=== PATIENT | male | born 1970 | race Caucasian/White ===

== ENCOUNTER 2017-06-14 05:06 | Emergency (ER) | payer MEDICAID, OTHER ==
[~2017-06-14] VITALS: Ht 177.8 cm; Wt 100.0 kg
[~2017-06-14 05:06] MED LIST: BACT800T5 PO; CEPH500C3 PO; CLIN1CAP6 PO; FOLI1 PO; TRAM50 PO; [UNRECOGNIZED DRUG - CODE] PO
[2017-06-14 05:09] VITALS: BP 136/96; PULSE 82; RESP 16; TEMP 97.9; O2SAT 99
--- NOTE | 2017-06-14 05:23 | PD ---
HPI Chief Complaint: Opioid Overdose Time Seen by Provider: 05:11 Travel History International Travel<30 days: No Contact w/Intl Traveler<30days: No Traveled to known affect area: No History of Present Illness HPI 46 yo M arrives by EMS due to unresponsiveness as witnessed by onlooker who witnessed patient on the ground in a house unknown to the patient. EMS gave 2 mg IM Narcan and the patient woke up shortly thereafter. In the ER he denies any drug use. He reports drinking alcohol last night. He denies suicidal thoughts or homicidal ideation. PFSH Past Medical History Autoimmune Disease: No Anxiety: Yes Depression: Yes Cancer: No Cardiovascular Problems: No Diminished Hearing: No Endocrine: No Genitourinary: Yes Hepatitis: Yes (C) Herniated Disk: Yes Immune Disorder: No Inguinal Hernia: Yes Kidney Stones: No Musculoskeletal: No Neurologic: No Psychiatric: No Reproductive: No Respiratory: No Integumentary: Yes (cellulitis 02/2015 lue) Renal Failure: Yes (only one kidney/acute kidney failure) Past Surgical History Endocrine Surgery: Yes (1 kidney) Other Surgery: Yes (CYST REMOVED FROM BACK) Social History Alcohol Use: Yes (4-6 PACK OF BEER EVERY 2-3 DAYS; LAST SEVERAL DAYS AGO) Tobacco Use: Yes (ONE PACK A DAY) Substance Use: Yes (OCC SMOKES CRACK COCAINE, HX IV DRUG USE, ETOH ABUSE) Allergies-Medications (Allergen,Severity, Reaction): Coded Allergies: penicillin G (Unverified Allergy, Mild, RASH/HIVES, 06/14/17) Reported Meds & Prescriptions Reported Meds & Active Scripts Active Folate 1 Mg Tab (Folic Acid) 1 Mg Tab 1 Mg PO DAILY Vitamin B1 (Thiamine Mononitrate) 100 Mg Tab 100 Mg PO DAILY Keflex (Cephalexin Monohydrate) 500 Mg Cap 500 Mg PO QID 5 Days Bactrim DS (Sulfamethoxazole-Trimethoprim DS) 1 Tab Tab 1 Tab PO BID 10 Days Clindamycin Hcl (Clindamycin HCl) 300 Mg Cap 300 Mg PO Q6HR 10 Days Ultram (Tramadol HCl) 50 Mg Tab 50 Mg PO Q6 PRN Review of Systems Except as stated in HPI: all other systems reviewed are Neg General / Constitutional: No: Fever Physical Exam Narrative GENERAL: 46-year-old male well-nourished well-developed SKIN: Focused skin assessment warm/dry. HEAD: Atraumatic. Normocephalic. EYES: Pupils equal and round. No scleral icterus. No injection or drainage. ENT: No nasal bleeding or discharge. Mucous membranes pink and moist. NECK: Trachea midline. No JVD. CARDIOVASCULAR: Regular rate and rhythm. No murmur appreciated. RESPIRATORY: No accessory muscle use. Clear to auscultation. Breath sounds equal bilaterally. GASTROINTESTINAL: Abdomen soft, non-tender, nondistended. Hepatic and splenic margins not palpable. MUSCULOSKELETAL: No obvious deformities. No clubbing. No cyanosis. No edema. NEUROLOGICAL: Awake and alert. No obvious cranial nerve deficits. Motor grossly within normal limits. Normal speech. PSYCHIATRIC: Appropriate mood and affect; insight and judgment normal. Data Data Last Documented VS Vital Signs Date Time Temp Pulse Resp B/P (MAP) Pulse Ox O2 Delivery O2 Flow Rate FiO2 06/14/17 08:46 99 16 129/84 (99) 97 Room Air 06/14/17 05:09 97.9 vital signs reviewed MDM Medical Decision Making Medical Screen Exam Complete: Yes Emergency Medical Condition: Yes Medical Record Reviewed: Yes Differential Diagnosis Opioid overdose, benzodiazepine overdose, alcoholism Narrative Course PT AOx3 GCS 15 No evidence respiratory depression Pt ok for discharge Diagnosis Primary Impression: Alcohol abuse Additional Impression: Opioid abuse Referrals: [facility] days Additional Instructions: You have a choice when it comes to health care, and we are glad that you chose [facility]. Hopefully, we have met your expectations on today's visit. You are welcome to return to [facility] at any time, as we are committed to meeting the health care needs of our community. Med/Other Pt SpecificInfo: No Change to Meds Disposition: 01 DISCHARGE HOME Condition: Stable Pepe Olivera MD Jun 14, 2017 05:23
[2017-06-14 08:46] VITALS: BP 129/84; PULSE 99; RESP 16; O2SAT 97
== END 2017-06-14 09:00 | disposition home or self-care (01) ==
LOC: NEPC 05:06
DX: T40.2X1A Poisoning by other opioids, accidental (unintentional), initial encounter (principal); F10.10 Alcohol abuse, uncomplicated; F41.9 Anxiety disorder, unspecified; F32.9 Major depressive disorder, single episode, unspecified; N17.9 Acute kidney failure, unspecified; F17.200 Nicotine dependence, unspecified, uncomplicated; Z86.19 Personal history of other infectious and parasitic diseases
CPT/HCPCS: 99283

== ENCOUNTER 2018-01-27 01:35 | Emergency (ER) | payer OTHER, MEDICAID ==
[~2018-01-27] VITALS: Ht 175.3 cm; Wt 79.0 kg
[2018-01-27 01:39] VITALS: BP 114/93; PULSE 86; RESP 18; TEMP 97.7; O2SAT 99
[2018-01-27] MEDS ORDERED: PROP10TA6 PO (02:01)
[2018-01-27] MEDS ORDERED: SPIR50TA PO (02:01)
[2018-01-27] MEDS ORDERED: FURO20TA PO (02:01)
[2018-01-27] MEDS ORDERED: PANT40TA3 PO (02:01)
[2018-01-27] MEDS ORDERED: TRAZ50TA12 PO (02:01)
--- NOTE | 2018-01-27 02:07 | PD ---
HPI Chief Complaint: Musculoskeletal Complaint Time Seen by Provider: 01:50 Travel History International Travel<30 days: No Contact w/Intl Traveler<30days: No Traveled to known affect area: No History of Present Illness HPI Patient is a 47 year old male brought in by police, complaining of pain to his shoulders and knee. He says that the police took him out of his truck and "roughed him up." He also says he has a bad liver and needs detox from alcohol. He is unable to provide specifics, but repeatedly talks about past medical issues he has had. He does admit to drinking alcohol tonight. History is limited. PFSH Past Medical History Autoimmune Disease: No Anxiety: Yes Depression: Yes Cancer: No Cardiovascular Problems: No Diminished Hearing: No Endocrine: No Genitourinary: Yes Hepatitis: Yes (C) Herniated Disk: Yes Immune Disorder: No Inguinal Hernia: Yes Kidney Stones: No Musculoskeletal: No Neurologic: No Psychiatric: No Reproductive: No Respiratory: No Integumentary: Yes (cellulitis 02/2015 lue) Renal Failure: Yes (only one kidney/acute kidney failure) Influenza Vaccination: No Past Surgical History Endocrine Surgery: Yes (1 kidney) Other Surgery: Yes (CYST REMOVED FROM BACK) Social History Alcohol Use: Yes (4-6 PACK OF BEER EVERY 2-3 DAYS; LAST SEVERAL DAYS AGO) Tobacco Use: Yes (ONE PACK A DAY) Substance Use: Yes (OCC SMOKES CRACK COCAINE, HX IV DRUG USE, ETOH ABUSE) Allergies-Medications (Allergen,Severity, Reaction): Coded Allergies: penicillin G (Unverified Allergy, Mild, RASH/HIVES, 01/27/18) Reported Meds & Prescriptions Reported Meds & Active Scripts Active Reported Pantoprazole (Pantoprazole Sodium) 40 Mg Tab 40 Mg PO DAILY Propranolol (Propranolol HCl) 10 Mg Tab 10 Mg PO Q12HR Spironolactone 50 Mg Tab 50 Mg PO DAILY Trazodone (Trazodone HCl) 50 Mg Tab 50 Mg PO HS Furosemide 20 Mg Tab 20 Mg PO DAILY Review of Systems ROS Limitations: Intoxication Physical Exam Narrative GENERAL: Awake and alert, aggravated and uncooperative. SKIN: Focused skin assessment warm/dry. No wounds or signs of infection. HEAD: Atraumatic. Normocephalic. EYES: Pupils equal and round. No scleral icterus. EOMI ENT: Mucous membranes pink and moist. CARDIOVASCULAR: Regular rate and rhythm. No murmur appreciated. RESPIRATORY: No accessory muscle use. Clear to auscultation. Breath sounds equal bilaterally. GASTROINTESTINAL: Abdomen soft, non-tender, nondistended. MUSCULOSKELETAL: No obvious deformities. No clubbing. No cyanosis. No edema. NEUROLOGICAL: Awake and alert, intoxicated. No obvious cranial nerve deficits. Motor grossly within normal limits. Normal speech. Data Data Last Documented VS Vital Signs Date Time Temp Pulse Resp B/P (MAP) Pulse Ox O2 Delivery O2 Flow Rate FiO2 01/27/18 01:47 18 01/27/18 01:39 97.7 86 114/93 (100) 99 Orders Orders Knee, Complete (4vws) (01/27/18 ) Shoulder, Complete (>2vws) (01/27/18 ) Shoulder, Complete (>2vws) (01/27/18 ) [facility] Medical Decision Making Medical Screen Exam Complete: Yes Emergency Medical Condition: Yes Medical Record Reviewed: Yes Differential Diagnosis intoxication vs muscle strain vs fracture Narrative Course Patient is a 47-year-old male brought in by police complaining of shoulder and knee pain. Exam shows no acute abnormalities. X-ray of the shoulders performed shows no acute abnormalities. X-ray of the knee performed shows no acute abnormalities. Patient to be discharged to police custody. Advised to follow-up with a primary care doctor. Advised return to the ED as needed for any worsening symptoms. Diagnosis Primary Impression: Musculoskeletal pain Patient Instructions: General Instructions, Musculoskeletal Pain (ED) Additional Instructions: Follow-up with a primary care doctor. Return to the ED as needed for any worsening symptoms. Disposition: 01 DISCHARGE HOME Condition: Stable Raquel Vogel MD Jan 27, 2018 02:06
--- NOTE | 2018-01-27 02:22 | RADRPT ---
EXAM DATE: 01/27/2018 2:18 AM EDT AGE/SEX: 47 years / Male INDICATIONS: Entire left knee pain. CLINICAL DATA: This is the patient's initial encounter. Patient reports that signs and symptoms have been present for 1 day and indicates a pain score of 8/10. MEDICAL/SURGICAL HISTORY: None. None. COMPARISON: No prior exams available for comparison. FINDINGS: Views of the left knee demonstrates mild generative changes. No fracture or effusion. Soft tissues a re unremarkable. No radiopaque foreign bodies seen. CONCLUSION: No acute fracture Electronically signed by: Sathya Roque MD 01/27/2018 2:21 AM EDT
--- NOTE | 2018-01-27 02:23 | RADRPT ---
EXAM DATE: 01/27/2018 2:19 AM EDT AGE/SEX: 47 years / Male INDICATIONS: Left shoulder pain. CLINICAL DATA: This is the patient's initial encounter. Patient reports that signs and symptoms have been present for 1 day and indicates a pain score of 7/10. MEDICAL/SURGICAL HISTORY: None. None. COMPARISON: [facility] – [place], SHOULDER LEFT COMPLETE (>2VWS), 03/15/2015. . FINDINGS: Views of the left shoulder demonstrates degenerative changes. No fracture or dislocation. Soft tissu es are unremarkable. No radiopaque foreign bodies seen. CONCLUSION: Degenerative changes without fracture Electronically signed by: Sathya Roque MD 01/27/2018 2:21 AM EDT
--- NOTE | 2018-01-27 02:23 | RADRPT ---
EXAM DATE: 01/27/2018 2:19 AM EDT AGE/SEX: 47 years / Male INDICATIONS: Right shoulder pain. CLINICAL DATA: This is the patient's initial encounter. Patient reports that signs and symptoms have been present for 1 day and indicates a pain score of 7/10. MEDICAL/SURGICAL HISTORY: None. None. COMPARISON: No prior exams available for comparison. FINDINGS: Views of the right shoulder obtained. No fracture or dislocation. Mild degenerative changes. Soft ti ssues are unremarkable. No radiopaque foreign bodies seen. CONCLUSION: No acute fracture Electronically signed by: Sathya Roque MD 01/27/2018 2:22 AM EDT
[2018-01-27 02:42] VITALS: BP 137/98
== END 2018-01-27 02:44 | disposition home or self-care (01) ==
LOC: PHED 01:35
DX: M25.512 Pain in left shoulder (principal); M25.511 Pain in right shoulder; M25.562 Pain in left knee; M25.561 Pain in right knee; N17.9 Acute kidney failure, unspecified; F41.9 Anxiety disorder, unspecified; F32.9 Major depressive disorder, single episode, unspecified; F14.90 Cocaine use, unspecified, uncomplicated; F17.200 Nicotine dependence, unspecified, uncomplicated; Z79.899 Other long term (current) drug therapy; Z88.0 Allergy status to penicillin; Z86.19 Personal history of other infectious and parasitic diseases
CPT/HCPCS: 73030; 73564; 99284